=== PATIENT | female | born 1970 | race Caucasian/White ===

== ENCOUNTER 2016-12-11 13:06 | Emergency (ER) | payer OTHER ==
[2016-12-11 13:32] VITALS: BP 133/68; PULSE 76; RESP 18; TEMP 98.4; O2SAT 99
--- NOTE | 2016-12-11 14:14 | ED PDOC ---
HPI: Female Pain Time Seen by Provider: 12/11/16 13:45 Chief Complaint (Nursing): Female Genitourinary Chief Complaint (Provider): dysuria History Per: Patient History/Exam Limitations: no limitations Onset/Duration Of Symptoms: Days (x 1) Current Symptoms Are (Timing): Still Present Additional Complaint(s): Jyoti Tirado is a 46 year old female, with a previous medical history of anemia, who presents to the ED with complaints of pain on urination accompanied by bilateral lower back pain and lower abdominal pain ongoing since last night. Patient denies any fever, chills, nausea or vomiting. PMD: none provided Abnormal Vaginal Bleeding: No Past Medical History Reviewed: Historical Data, Nursing Documentation, Vital Signs Vital Signs: Last Vital Signs Temp 98.4 F 12/11/16 13:29 Pulse 76 12/11/16 13:29 Resp 18 12/11/16 13:29 BP 133/68 12/11/16 13:29 Pulse Ox 99 12/11/16 13:29 - Medical History PMH: Anemia - Surgical History Surgical History: No Surg Hx - Family History Family History: States: Unknown Family Hx - Living Arrangements Living Arrangements: With Family - Social History Current smoker - smoking cessation education provided: No Alcohol: None Drugs: Denies - Home Medications Home Medications: Ambulatory Orders Medication Instructions Recorded Ciprofloxacin [Cipro] 500 mg PO BID #10 tab 12/11/16 Phenazopyridine HCl [Pyridium] 200 mg PO TID #15 tablet 12/11/16 - Allergies Allergies/Adverse Reactions: Allergies Allergy/AdvReac Type Severity Reaction Status Date / Time No Known Allergies Allergy Verified 12/11/16 13:29 Review of Systems ROS Statement: Except As Marked, All Systems Reviewed And Found Negative Constitutional: Negative for: Fever, Chills Gastrointestinal: Negative for: Nausea, Vomiting Genitourinary Female: Positive for: Dysuria, Pelvic Pain Musculoskeletal: Positive for: Back Pain (bilateral lower back ) Physical Exam - Reviewed Nursing Documentation Reviewed: Yes Vital Signs Reviewed: Yes - Physical Exam Appears: Positive for: Well, Non-toxic, No Acute Distress Head Exam: Positive for: ATRAUMATIC, NORMAL INSPECTION, NORMOCEPHALIC Skin: Positive for: Normal Color Eye Exam: Positive for: Normal appearance ENT: Positive for: Normal ENT Inspection Neck: Positive for: Normal Cardiovascular/Chest: Positive for: Regular Rate, Rhythm Respiratory: Positive for: Normal Breath Sounds. Negative for: Accessory Muscle Use, Respiratory Distress Gastrointestinal/Abdominal: Positive for: Normal Exam, Bowel Sounds, Soft. Negative for: Tenderness Back: Positive for: Normal Inspection. Negative for: L CVA Tenderness, R CVA Tenderness, Vertebral Tenderness Neurologic/Psych: Positive for: Alert, Oriented - Laboratory Results Urine POC: Negative - ECG O2 Sat by Pulse Oximetry: 99 (RA) Pulse Ox Interpretation: Normal - Progress ED Course And Treament: Patient reports being unable to urinate and was given water in the ED to drink. Medical Decision Making Medical Decision Making: Initial Impression: Dysuria Initial Plan: * urine dipstick * urine * tylenol * reevaluation (+) nitrites in urine Scribe Attestation: Documented by Teresa King, acting as a scribe for Reshma Hodges PA-C. Provider Scribe Attestation: All medical record entries made by the Scribe were at my direction and personally dictated by me. I have reviewed the chart and agree that the record accurately reflects my personal performance of the history, physical exam, medical decision making, and the department course for this patient. I have also personally directed, reviewed, and agree with the discharge instructions and disposition. Disposition - Clinical Impression Clinical Impression: UTI (urinary tract infection) - Patient ED Disposition Is Patient to be Admitted: No Counseled Patient/Family Regarding: Diagnosis, Need For Followup, Rx Given - Disposition Referrals: [facility] [Outside] [facility] [Outside] Disposition: Routine/Home Disposition Time: 14:46 Condition: GOOD Prescriptions: Ciprofloxacin [Cipro] 500 mg PO BID #10 tab Phenazopyridine HCl [Pyridium] 200 mg PO TID #15 tablet Instructions: Urinary Tract Infection in Women (ED) Print Language: UKRAINIAN
== END 2016-12-11 15:08 | disposition home or self-care (01) ==
LOC: H.ER 13:06
DX: N39.0 Urinary tract infection, site not specified (principal)

== ENCOUNTER 2018-03-23 20:38 | Observation (INO) | payer SELFPAY ==
[2018-03-23] MEDS ORDERED: Sodium Chloride 0.9% 50 ML IV ONE (21:36)
[2018-03-23] MEDS ORDERED: Iodixanol 320 MG/ML 100 ML BOTTLE IV ONE (21:36)
[2018-03-23 22:02] LABS: PROTHROMBIN TIME 11.6 Seconds (9.8-13.1)
[2018-03-23 22:05] LABS: BASO # 0.1 K/uL (0.0-0.2); BASO % 0.6 % (0.0-2.0); EOS # 0.2 K/uL (0.0-0.7); EOS % 2.3 % (0.0-4.0); HEMOGLOBIN 14.1 g/dL (12.0-16.0); LYMPH # 2.1 K/uL (1.0-4.3); LYMPH % 24.9 % (20.0-40.0); MEAN CELL VOLUME 90.4 fl (81.0-99.0); MEAN CORPUSCULAR HEMOGLOBIN 30.7 pg (27.0-31.0); MEAN PLATELET VOLUME 8.8 fl (7.2-11.7); MONO # 0.5 K/uL (0.0-0.8); MONO % 6.3 % (0.0-10.0); NEUT # 5.6 K/uL (1.8-7.0); NEUT % 65.9 % (50.0-75.0); PARTIAL THROMBOPLASTIN TIME 32.4 Seconds (25.6-37.1); RBC 4.58 Mil/uL (3.80-5.20); RED CELL DISTRIBUTION WIDTH 12.6 % (11.5-14.5); WHITE BLOOD COUNT 8.5 K/uL (4.8-10.8)
[2018-03-23 22:10] LABS: BLOOD UREA NITROGEN 15 mg/dl (7-17); CALCIUM 9.3 mg/dL (8.4-10.2); GFR NON-AFRICAN AMERICAN > 60; LIPASE 112 U/L (23-300)
--- NOTE | 2018-03-23 22:10 | ED PDOC ---
HPI: Chest Pain Time Seen by Provider: 03/23/18 20:57 Chief Complaint (Nursing): Chest Pain Chief Complaint (Provider): Chest Pain History Per: Patient History/Exam Limitations: no limitations Onset/Duration Of Symptoms: Days (x2) Current Symptoms Are (Timing): Still Present Additional Complaint(s): 47 year old female with a history of anemia and possibly dm presents to the ED with chest pain onset x2 days. Patient describes constant sternal pain, radiating to her mid-back that worsens with movement or deep breath. She has had similar pain in the past that has resolved after taking Advil. This time, she took Advil with no relief. Patient denies shortness of breath, fever, cough , vomiting, abdominal pain, or any other medical complaints. She also reports an intermittent headache that started x3 months ago that she has been seen here for. PMD: Dr. Maldonado Past Medical History Reviewed: Historical Data, Nursing Documentation, Vital Signs Vital Signs: Last Vital Signs Temp 98 F 03/24/18 08:16 Pulse 59 L 03/24/18 08:16 Resp 18 03/24/18 08:16 BP 119/77 03/24/18 08:16 Pulse Ox 99 03/24/18 08:16 - Medical History PMH: Anemia, Diabetes (possible) - Surgical History Surgical History: - Family History Family History: States: Unknown Family Hx - Social History Current smoker - smoking cessation education provided: No Ex-Smoker (has not smoked in the last 12 months): No Alcohol: None Drugs: Denies - Home Medications Home Medications: Ambulatory Orders Medication Instructions Recorded Atorvastatin [Lipitor] 20 mg PO HS #30 tab 03/24/18 Famotidine [Pepcid] 20 mg PO DAILY 30 Days tab 03/24/18 Ibuprofen [Motrin Tab] 400 mg PO Q6 PRN #30 tab 03/24/18 - Allergies Allergies/Adverse Reactions: Allergies Allergy/AdvReac Type Severity Reaction Status Date / Time No Known Allergies Allergy Verified 03/24/18 00:31 JOSEF Risk Score for UA/NSTEMI - JOSEF Risk Score Age > 64: NO 3 or more CAD Risk Factors: NO Known CAD (Stenosis greater than 50%): NO Aspirin use in past 7 days: NO Severe Angina: YES EKG ST changes greater than 0.5mm: NO Positive Cardiac Marker: NO JOSEF Score: 1 Risk %: 5% Wells Criteria for PE - Wells Criteria for Pulmonary Embolism Clinical Signs and Symptoms of DVT: No P.E is #1 Diagnosis, or Equally Likely: No Heart Rate >100: No Immobilization at least 3 days;Surgery previous 4 weeks: No Previous, objectively diagnosed PE or DVT: No Hemoptysis: No Malignancy w/treatment within 6 months, or palliative: No Total Score: 0 Review of Systems ROS Statement: Except As Marked, All Systems Reviewed And Found Negative Cardiovascular: Positive for: Chest Pain Musculoskeletal: Positive for: Back Pain Neurological: Positive for: Headache Physical Exam - Reviewed Nursing Documentation Reviewed: Yes Vital Signs Reviewed: Yes - Physical Exam Appears: Positive for: Non-toxic, No Acute Distress Head Exam: Positive for: ATRAUMATIC, NORMOCEPHALIC Skin: Positive for: Normal Color, Warm, Dry Eye Exam: Positive for: Normal appearance, EOMI, PERRL ENT: Positive for: Normal ENT Inspection Neck: Positive for: Normal, Painless ROM, Supple Cardiovascular/Chest: Positive for: Regular Rate, Rhythm, Other (chest wall tenderness). Negative for: Murmur Respiratory: Positive for: Normal Breath Sounds. Negative for: Accessory Muscle Use, Respiratory Distress Gastrointestinal/Abdominal: Positive for: Normal Exam, Soft. Negative for: Tenderness Back: Negative for: L CVA Tenderness, R CVA Tenderness Extremity: Positive for: Normal ROM (upper and lower). Negative for: Pedal Edema, Deformity Neurologic/Psych: Positive for: Alert, Oriented (x3) - Laboratory Results Result Diagrams: 03/23/18 21:30 03/23/18 21:30 - ECG ECG Rhythm: Positive for: Normal QRS, Normal ST Segment, Sinus Rhythm Rate: 94 O2 Sat by Pulse Oximetry: 100 (RA) Pulse Ox Interpretation: Normal Medical Decision Making Medical Decision Making: Time: 2113 Initial Impression: Chest pain, back pain, and chronic headache Differential diagnoses include but are not limited to: acs, aortic dissection, possibly pulmonary embolism Initial Impression: --Angio chest CT --Dissection CT --Type and screen --BMP --Lipase --Troponin --CBC with differentials --Partial Thromboplastin time --Prothrombin time --Morphine 2 mg IVP EXAM: CT Chest With Intravenous Contrast EXAM DATE/TIME: 03/23/2018 9:15 PM CLINICAL HISTORY: 47 years old, female; Pain; Other: Back pain; Chest pain; Type not specified; Prior surgery; Surgery date: 6+ months; Surgery type: ; Additional info: Chest pain back pain. R/O p. E. TECHNIQUE: Axial computed tomography images of the chest with intravenous contrast. All CT scans at this facility use at least one of these dose optimization techniques: automated exposure control; mA and/or kV adjustment per patient size (includes targeted exams where dose is matched to clinical indication); or iterative reconstruction. Coronal and sagittal reformatted images were created and reviewed. MIP reconstructed images were created and reviewed. CONTRAST: 95 ml of [id number] administered intravenously. COMPARISON: No relevant prior studies available. FINDINGS: Lungs: Minimal bilateral dependent atelectasis. Pleural space: Normal. No pneumothorax. No pleural effusion. Heart: Normal. No cardiomegaly. No pericardial effusion. Mediastinum: Slight induration of anterior mediastinal fat which is nonspecific in a patient of this age. Pulmonary arteries: The main pulmonary artery measures 24 mm. No pulmonary embolism is identified. Aorta: The ascending thoracic aorta measures 25 mm. Motion and/or beam hardening artifact precludes detailed evaluation of the ascending thoracic aorta and subtle aortic dissection is not excluded on this basis although no gross or obvious dissection is seen. Not grossly ruled in does not mean ruled out. Lymph nodes: Unremarkable. No enlarged lymph nodes. Bones/joints: Unremarkable. No acute fracture. Soft tissues: Unremarkable. Liver: There is fatty infiltration of the liver. IMPRESSION: 1. Fatty infiltration of the liver. 2. Slight induration of anterior mediastinal fat which is nonspecific in a patient of this age. 3. Otherwise negative CT chest. No pulmonary embolism is identified. No gross or obvious aortic dissection is identified distal to the mid arch. Artifact and image degradation precludes detailed evaluation of the ascending thoracic aorta. EXAM: CT Abdomen and Pelvis With Intravenous Contrast EXAM DATE/TIME: 03/23/2018 9:15 PM CLINICAL HISTORY: 47 years old, female; Pain; Other: Back pain; Chest pain; Type not specified; Prior surgery; Surgery date: 6+ months; Surgery type: ; Additional info: Chest pain back pain. R/O p. E. TECHNIQUE: Axial computed tomography images of the abdomen and pelvis with intravenous contrast. All CT scans at this facility use at least one of these dose optimization techniques: automated exposure control; mA and/or kV adjustment per patient size (includes targeted exams where dose is matched to clinical indication); or iterative reconstruction. Coronal and sagittal reformatted images were created and reviewed. MIP reconstructed images were created and reviewed. CONTRAST: 95 ml of [id number] administered intravenously. COMPARISON: No relevant prior studies available. FINDINGS: Lower thorax: No acute findings. ABDOMEN: Liver: There is fatty infiltration of the liver. Gallbladder and bile ducts: Normal. No calcified stones. No ductal dilation. Pancreas: Normal. No ductal dilation. Spleen: Normal. No splenomegaly. Adrenals: Normal. No mass. Kidneys and ureters: Normal. No hydronephrosis. Stomach and bowel: Normal. No obstruction. No mucosal thickening. Appendix: A normal appendix is seen. PELVIS: Bladder: Unremarkable as visualized. Reproductive: Asymmetric enlargement of the right ovary compared to the left and may reflect a cyst 20 mm. ABDOMEN and PELVIS: Intraperitoneal space: Normal. No free air. No significant fluid collection. Bones/joints: No acute fracture. No dislocation. Soft tissues: Unremarkable. Vasculature: The aorta demonstrates no aneurysm or dissection. Lymph nodes: Normal. No enlarged lymph nodes. IMPRESSION: 1. Fatty infiltration of the liver. 2. The right ovary is asymmetrically larger than the left and may reflect the presence of a cyst which may measure approximately 20 mm. 3[address] Otherwise negative CT abdomen/pelvis. No abdominal aortic aneurysm or dissection is identified. Thank you for allowing us to participate in the care of your patient. Dictated and Authenticated by: Endy Valdovinos MD 03/23/2018 11:47 PM Eastern Time ([place] & [place]) Scribe Attestation: Documented by Madelin Enrique, acting as a scribe for Jaron Slater MD Provider Scribe Attestation: All medical record entries made by the Scribe were at my direction and personally dictated by me. I have reviewed the chart and agree that the record accurately reflects my personal performance of the history, physical exam, medical decision making, and the department course for this patient. I have also personally directed, reviewed, and agree with the discharge instructions and disposition. Time: 2355 -- Discussed case with Dr. Matthew who will be admitting patient under his service for observation with a diagnosis of chest pain. Scribe Attestation: Documented by Cristiana Payan acting as a scribe for aJron Slater MD. Provider Scribe Attestation: All medical record entries made by the Scribe were at my direction and personally dictated by me. I have reviewed the chart and agree that the record accurately reflects my personal performance of the history, physical exam, medical decision making, and the department course for this patient. I have also personally directed, reviewed, and agree with the discharge instructions and disposition. Disposition - Clinical Impression Clinical Impression: Chest pain - Patient ED Disposition Is Patient to be Admitted: Yes Discussed With DrRex: Reji Matthew Doctor Will See Patient In The: ED Counseled Patient/Family Regarding: Studies Performed, Diagnosis - Disposition Disposition Time: 23:56 Condition: FAIR - Pt Status Changed To: Hospital Disposition Of: Observation - POA Present On Arrival: None
--- NOTE | 2018-03-24 00:03 | CP.PCM.HP ---
History of Present Illness - History of Present Illness History of Present Illness: PMD: Rigo Maldonado MD Chief Complaint: Chest pain The Patient was seen and examined in the ED HPI: The hx was obtained from the patient and after review of the medical records. She is a 47 years old female with past medical hx of Anemia, comes with 2 days of continuous mid to lower sternal pain, radiating across the mid and lower back and increases in intensity with deep inspiration and agitation, associated with SOB pain related.The pain was not relieved with Motrin. She referred on and off chest pain for 3 months associated with joint pains. No fever, cough, nausea nor vomits. PMH: Anemia PSH: Cesefrian section X2; Excision of Ovarian cysts ; SH: Never Smoked; No illegal drug use; No Alcohol; Live with family; Works in a [employer] [place]; States: Unknown Family Hx Allergies: NKDA Medication: Reviewed Present on Admission - Present on Admission Any Indicators Present on Admission: No History of DVT/PE: No History of Uncontrolled Diabetes: No Urinary Catheter: No Decubitus Ulcer Present: No Review of Systems - Constitutional Constitutional: Headache. absent: Excessive Sweating, Fever - EENT Eyes: Requires Corrective Lenses. absent: Blurred Vision, Diplopia, Floaters Ears: absent: Decreased Hearing, Ear Discharge, Tinnitus Nose/Mouth/Throat: absent: Epistaxis, Nasal Congestion, Nasal Discharge, Sinus Pain, Sinus Pressure - Cardiovascular Cardiovascular: Chest Pain, Dyspnea. absent: Edema - Respiratory Respiratory: Dyspnea. absent: Cough, Wheezing, Stridor, Chest Congestion - Gastrointestinal Gastrointestinal: Abdominal Pain, Constipation. absent: Diarrhea, Nausea, Vomiting - Genitourinary Genitourinary: absent: Dysuria, Flank Pain, Urinary Frequency - Musculoskeletal Musculoskeletal: Arthralgias, Back Pain, Myalgias - Integumentary Integumentary: absent: Pruritus, Rash, Skin Ulcer, Sores, Striae, Swelling - Neurological Neurological: Headaches. absent: Confusion, Dizziness, Focal Weakness, Weakness - Psychiatric Psychiatric: absent: Anxiety, Depression, Panic Attacks - Endocrine Endocrine: absent: Palpitations, Polydipsia, Polyphagia, Polyuria - Hematologic/Lymphatic Hematologic: absent: Easy Bleeding, Easy Bruising Past Patient History - Past Medical History & Family History Past Medical History?: No - Past Social History Smoking Status: Never Smoked Chewing Tobacco Use: No Cigar Use: No Alcohol: None Drugs: Denies Home Situation {Lives}: With Family - CARDIAC Hx Cardiac Disorders: No - PULMONARY Hx Respiratory Disorders: No - NEUROLOGICAL Hx Neurological Disorder: No - HEENT Hx HEENT Problems: No - RENAL Hx Chronic Kidney Disease: No - ENDOCRINE/METABOLIC Hx Endocrine Disorders: No - HEMATOLOGICAL/ONCOLOGICAL Hx Anemia: Yes - INTEGUMENTARY Hx Dermatological Problems: No - MUSCULOSKELETAL/RHEUMATOLOGICAL Hx Musculoskeletal Disorders: No - GASTROINTESTINAL Hx Gastrointestinal Disorders: No - GENITOURINARY/GYNECOLOGICAL Hx Genitourinary Disorders: No - PSYCHIATRIC Hx Psychophysiologic Disorder: No Hx Substance Use: No - ANESTHESIA Hx Anesthesia: Yes Hx Anesthesia Reactions: No Meds Allergies/Adverse Reactions: Allergies Allergy/AdvReac Type Severity Reaction Status Date / Time No Known Allergies Allergy Verified 03/24/18 00:31 Physical Exam - Constitutional Appears: No Acute Distress - Head Exam Head Exam: ATRAUMATIC, NORMAL INSPECTION, NORMOCEPHALIC - Eye Exam Eye Exam: EOMI, Normal appearance Pupil Exam: NORMAL ACCOMODATION, PERRL - ENT Exam ENT Exam: Mucous Membranes Moist, Normal Exam, Normal External Ear Exam - Neck Exam Neck exam: Positive for: Full Rom, Normal Inspection. Negative for: Lymphadenopathy, Tenderness - Respiratory Exam Respiratory Exam: Clear to Auscultation Bilateral. absent: Rales, Rhonchi, Wheezes - Cardiovascular Exam Cardiovascular Exam: REGULAR RHYTHM, RRR, +S1, +S2. absent: Gallop, JVD - GI/Abdominal Exam GI & Abdominal Exam: Normal Bowel Sounds, Soft. absent: Mass, Organomegaly, Tenderness - Rectal Exam Rectal Exam: Deferred - Extremities Exam Extremities exam: Positive for: full ROM, normal inspection. Negative for: calf tenderness, pedal edema, tenderness - Back Exam Back exam: NORMAL INSPECTION. absent: CVA tenderness (L), CVA tenderness (R) - Neurological Exam Neurological exam: Alert, CN II-XII Intact, Oriented x3, Reflexes Normal - Psychiatric Exam Psychiatric exam: Normal Affect, Normal Mood - Skin Skin Exam: Dry, Intact, Normal Color, Warm Results - Vital Signs Recent Vital Signs: Last Vital Signs Temp 99.5 F 03/23/18 20:42 Pulse 94 H 03/24/18 00:02 Resp 18 03/23/18 20:42 BP 146/100 H 03/23/18 20:42 Pulse Ox 100 03/24/18 00:02 - Labs Result Diagrams: 03/23/18 21:30 03/23/18 21:30 Labs: Laboratory Results - last 24 hr 03/23/18 03/23/18 03/23/18 21:30 21:30 21:30 WBC 8.5 RBC 4.58 Hgb 14.1 Hct 41.4 MCV 90.4 MCH 30.7 MCHC 34.0 RDW 12.6 Plt Count 258 MPV 8.8 Neut % (Auto) 65.9 Lymph % (Auto) 24.9 Wilson % (Auto) 6.3 Eos % (Auto) 2.3 Baso % (Auto) 0.6 Neut # (Auto) 5.6 Lymph # (Auto) 2.1 Wilson # (Auto) 0.5 Eos # (Auto) 0.2 Baso # (Auto) 0.1 PT 11.6 INR 1.0 APTT 32.4 Sodium 140 Potassium 3.9 Chloride 106 Carbon Dioxide 25 Anion Gap 13 BUN 15 Creatinine 0.7 Est GFR ( Amer) > 60 Est GFR (Non-Af Amer) > 60 Random Glucose 155 H Calcium 9.3 Troponin I < 0.0120 Lipase 112 Blood Type Antibody Screen BBK History Checked 03/23/18 21:30 WBC RBC Hgb Hct MCV MCH MCHC RDW Plt Count MPV Neut % (Auto) Lymph % (Auto) Wilson % (Auto) Eos % (Auto) Baso % (Auto) Neut # (Auto) Lymph # (Auto) Wilson # (Auto) Eos # (Auto) Baso # (Auto) PT INR APTT Sodium Potassium Chloride Carbon Dioxide Anion Gap BUN Creatinine Est GFR ( Amer) Est GFR (Non-Af Amer) Random Glucose Calcium Troponin I Lipase Blood Type A POSITIVE Antibody Screen Negative BBK History Checked Patient has bt - Impressions Impression: NSR 94/min No sign of ischemia - Imaging and Cardiology CT Chest with Contrast Additional comment: EXAM: CT Chest With Intravenous Contrast EXAM DATE/TIME: 03/23/2018 9:15 PM FINDINGS: Lungs: Minimal bilateral dependent atelectasis. Pleural space: Normal. No pneumothorax. No pleural effusion. Heart: Normal. No cardiomegaly. No pericardial effusion. Mediastinum: Slight induration of anterior mediastinal fat which is nonspecific in a patient of this age. Pulmonary arteries: The main pulmonary artery measures 24 mm. No pulmonary embolism is identified. Aorta: The ascending thoracic aorta measures 25 mm. Motion and/or beam hardening artifact precludes detailed evaluation of the ascending thoracic aorta and subtle aortic dissection is not excluded on this basis although no gross or obvious dissection is seen. Not grossly ruled in does not mean ruled out. Lymph nodes: Unremarkable. No enlarged lymph nodes. Bones/joints: Unremarkable. No acute fracture. Soft tissues: Unremarkable. Liver: There is fatty infiltration of the liver. IMPRESSION: 1. Fatty infiltration of the liver. 2. Slight induration of anterior mediastinal fat which is nonspecific in a patient of this age. 3. Otherwise negative CT chest. No pulmonary embolism is identified. No gross or obvious aortic dissection is identified distal to the mid arch. Artifact and image degradation precludes detailed evaluation of the ascending thoracic aorta. Assessment & Plan - Assessment and Plan (Free Text) Assessment: #. Chest pain #. Arthralgia #. Hyperglycemia Plan: 47 years old female with past medical hx of Anemia, comes with 2 days of continuous mid to lower sternal pain, radiating across the mid and lower back and increases in intensity with deep inspiration and agitation, associated with SOB pain related.The pain was not relieved with Motrin. She referred on and off chest pain for 3 months associated with joint pains. No fever, cough, nausea nor vomits. #. Chest pain probably osteochondritis, r/o ACS - Consult Dr Gurrola Cardiology - pain management - Serial Troponin - Serial EKG - Aspirin - Lipid Panel #. Arthralgia, probably collagen vascular disease - Pain management - ESR - [facility] #. Non alcoholic fatty liver disease - Patient will need a weight loosing program #. Hyperglycemia - HbA1c #. Stress ulcer prophylaxis with Pepcid #. DVT prophylaxis with Lovenox #. Code Status: Full - Date & Time Date: 03/24/18 Time: 00:00
[2018-03-24 05:07] VITALS: RESP 18
[2018-03-24 06:12] LABS: HDL CHOLESTEROL 43 MG/DL (30-70)
[2018-03-24] MEDS ORDERED: Pneumococcal 23-Valent Vaccine IM ONE (06:18)
[2018-03-24 06:23] LABS: LDL CHOLESTEROL 131 mg/dL (0-129)
--- NOTE | 2018-03-24 08:12 | CP.PCM.CON ---
History of Present Illness - History of Present Illness History of Present Illness: 47 years old female with past medical hx of Anemia, comes with 2 days of continuous mid to lower sternal pain, Associated with lower back pain worse with movement of her torso and her arms. Pains have been present for 3 months Also associated with joint pains. EKG: normal Troponin: neg No meds claims she has borderline DM but no meds Past Patient History - Past Medical History & Family History Past Medical History?: No - Past Social History Smoking Status: Never Smoked Chewing Tobacco Use: No Cigar Use: No Alcohol: None Drugs: Denies Home Situation {Lives}: With Family - CARDIAC Hx Cardiac Disorders: No - PULMONARY Hx Respiratory Disorders: No - NEUROLOGICAL Hx Neurological Disorder: No - HEENT Hx HEENT Problems: No - RENAL Hx Chronic Kidney Disease: No - ENDOCRINE/METABOLIC Hx Endocrine Disorders: No - HEMATOLOGICAL/ONCOLOGICAL Hx Anemia: Yes - INTEGUMENTARY Hx Dermatological Problems: No - MUSCULOSKELETAL/RHEUMATOLOGICAL Hx Musculoskeletal Disorders: No - GASTROINTESTINAL Hx Gastrointestinal Disorders: No - GENITOURINARY/GYNECOLOGICAL Hx Genitourinary Disorders: No - PSYCHIATRIC Hx Psychophysiologic Disorder: No Hx Substance Use: No - SURGICAL HISTORY Hx Surgeries: Yes Hx Section: Yes - ANESTHESIA Hx Anesthesia: Yes Hx Anesthesia Reactions: No Meds Home Medications: Home Medication List Medication Instructions Recorded Confirmed Type RX: Atorvastatin [Lipitor] 20 mg PO HS #30 tab 03/24/18 Rx RX: Famotidine [Pepcid] 20 mg PO DAILY 30 Days tab 03/24/18 Rx RX: Ibuprofen [Motrin Tab] 400 mg PO Q6 PRN #30 tab 03/24/18 Rx Allergies/Adverse Reactions: Allergies Allergy/AdvReac Type Severity Reaction Status Date / Time No Known Allergies Allergy Verified 03/24/18 00:31 - Medications Medications: Current Medications Aspirin (Ecotrin) 81 mg PO DAILY JADEN Enoxaparin Sodium (Lovenox) 40 mg SC DAILY JADEN PRN Reason: Protocol Famotidine (Pepcid) 20 mg PO DAILY JADEN Ibuprofen (Motrin Tab) 400 mg PO Q6 PRN PRN Reason: Pain, moderate (4-7) Ibuprofen (Motrin Tab) 600 mg PO Q6 PRN PRN Reason: Pain, severe (8-10) Physical Exam - Constitutional Appears: Well - Head Exam Head Exam: NORMAL INSPECTION - Eye Exam Eye Exam: Normal appearance - ENT Exam ENT Exam: Normal Exam - Neck Exam Neck exam: Positive for: Normal Inspection - Respiratory Exam Respiratory Exam: NORMAL BREATHING PATTERN - Cardiovascular Exam Cardiovascular Exam: REGULAR RHYTHM Results - Vital Signs Recent Vital Signs: Last Vital Signs Temp 97.9 F 03/24/18 05:07 Pulse 60 03/24/18 05:07 Resp 18 03/24/18 05:07 BP 145/87 03/24/18 05:07 Pulse Ox 99 03/24/18 05:07 - Labs Result Diagrams: 03/23/18 21:30 03/23/18 21:30 Labs: Laboratory Results - last 24 hr 03/23/18 03/23/18 03/23/18 21:30 21:30 21:30 WBC 8.5 RBC 4.58 Hgb 14.1 Hct 41.4 MCV 90.4 MCH 30.7 MCHC 34.0 RDW 12.6 Plt Count 258 MPV 8.8 Neut % (Auto) 65.9 Lymph % (Auto) 24.9 [place] % (Auto) 6.3 Eos % (Auto) 2.3 Baso % (Auto) 0.6 Neut # (Auto) 5.6 Lymph # (Auto) 2.1 [place] # (Auto) 0.5 Eos # (Auto) 0.2 Baso # (Auto) 0.1 ESR PT 11.6 INR 1.0 APTT 32.4 Sodium 140 Potassium 3.9 Chloride 106 Carbon Dioxide 25 Anion Gap 13 BUN 15 Creatinine 0.7 Est GFR ( Amer) > 60 Est GFR (Non-Af Amer) > 60 POC Glucose (mg/dL) Random Glucose 155 H Calcium 9.3 Troponin I < 0.0120 Triglycerides Cholesterol LDL Cholesterol Direct HDL Cholesterol Lipase 112 Blood Type Antibody Screen BBK History Checked 03/23/18 03/24/18 03/24/18 21:30 04:20 04:20 WBC RBC Hgb Hct MCV MCH MCHC RDW Plt Count MPV Neut % (Auto) Lymph % (Auto) [place] % (Auto) Eos % (Auto) Baso % (Auto) Neut # (Auto) Lymph # (Auto) [place] # (Auto) Eos # (Auto) Baso # (Auto) ESR 26 H PT INR APTT Sodium Potassium Chloride Carbon Dioxide Anion Gap BUN Creatinine Est GFR ( Amer) Est GFR (Non-Af Amer) POC Glucose (mg/dL) Random Glucose Calcium Troponin I < 0.0120 Triglycerides 142 Cholesterol 201 H LDL Cholesterol Direct 131 H HDL Cholesterol 43 Lipase Blood Type A POSITIVE Antibody Screen Negative BBK History Checked Patient has bt 03/24/18 05:40 WBC RBC Hgb Hct MCV MCH MCHC RDW Plt Count MPV Neut % (Auto) Lymph % (Auto) [place] % (Auto) Eos % (Auto) Baso % (Auto) Neut # (Auto) Lymph # (Auto) [place] # (Auto) Eos # (Auto) Baso # (Auto) ESR PT INR APTT Sodium Potassium Chloride Carbon Dioxide Anion Gap BUN Creatinine Est GFR ( Amer) Est GFR (Non-Af Amer) POC Glucose (mg/dL) 134 H Random Glucose Calcium Troponin I Triglycerides Cholesterol LDL Cholesterol Direct HDL Cholesterol Lipase Blood Type Antibody Screen BBK History Checked Assessment & Plan (1) Non-cardiac chest pain Assessment and Plan: Pains appear to be non cardiac Status: Acute
[2018-03-24] MEDS ORDERED: Enoxaparin 40 mg Syringe SC SCH (09:00)
--- NOTE | 2018-03-24 09:31 | CARD ---
APPROVED REPORT Date of service: 03/23/2018 <Conclusion> Normal sinus rhythm Normal ECG
--- NOTE | 2018-03-24 10:30 | CT ---
PROCEDURE: CT Angiography Chest, Abdomen and Pelvis with and without intravenous contrast HISTORY: chest pain back pain COMPARISON: None. TECHNIQUE: Contiguous axial images of the chest, abdomen and pelvis were obtained in the phase of aortic enhancement. A noncontrast enhanced CT of the chest was also obtained to evaluate for possible intramural thrombus. Coronal and sagittal reformats were generated. IV dose administered: 95 mL Visipaque 320 Radiation dose: Total exam DLP = 1106.8 mGy-cm. This CT exam was performed using one or more of the following dose reduction techniques: Automated exposure control, adjustment of the mA and/or kV according to patient size, and/or use of iterative reconstruction technique. FINDINGS: CT ANGIOGRAPHY OF THE CHEST WITH & WITHOUT CONTRAST: AORTA (CHEST AND ABDOMEN): The thoracic and abdominal aorta are unremarkable, without aneurysm, dissection or rupture. No intramural thrombus identified in the thoracic aorta on the non-contrast ct of the chest. The celiac axis, superior mesenteric artery, inferior mesenteric artery and the renal arteries are widely patent. The pelvic arteries are unremarkable. LUNGS: Clear. No nodule, mass or consolidation. MEDIASTINUM: Unremarkable. Normal caliber aorta and pulmonary arterial trunk. No aortic dissection. Normal size heart. LYMPH NODES: Unremarkable. PLEURA: Unremarkable. No pneumothorax. No pleural fluid. BONES: Unremarkable. OTHER FINDINGS: None. CT ANGIOGRAPHY OF THE ABDOMEN AND PELVIS WITH CONTRAST: LIVER: Hepatic steatosis. No gross lesion or ductal dilatation. GALLBLADDER AND BILE DUCTS: Unremarkable. PANCREAS: Unremarkable. No gross lesion or ductal dilatation. SPLEEN: Unremarkable. ADRENALS: Unremarkable. No mass. KIDNEYS AND URETERS: Unremarkable. No hydronephrosis. No solid mass. VASCULATURE: Unremarkable. No aortic aneurysm. STOMACH AND BOWEL: Unremarkable. No obstruction. No gross mural thickening. APPENDIX: Normal appendix. PERITONEUM: Unremarkable. No free fluid. No free air. LYMPH NODES: Unremarkable. No enlarged lymph nodes. BLADDER: Unremarkable. REPRODUCTIVE: Right ovarian cyst measuring 3.8 x 2.1 cm. BONES: No acute fracture. OTHER FINDINGS: None. IMPRESSION: No evidence of acute aortic dissection. No central pulmonary embolism. Right ovarian cyst measuring up to 3.8 cm.
[2018-03-24 12:14] VITALS: BP 117/76; PULSE 65; TEMP 98.3; O2SAT 99
--- NOTE | 2018-03-24 14:15 | CP.PCM.DIS ---
Provider - Provider Date of Admission: 03/23/18 23:55 Attending physician: Reji Matthew Primary care physician: Service Consults: Dr. Izabela MD- cardiology Time Spent in preparation of Discharge (in minutes): 15 Hospital Course - Lab Results Lab Results: Most Recent Lab Values WBC 8.5 K/uL (4.8-10.8) 03/23/18 21:30 RBC 4.58 Mil/uL (3.80-5.20) 03/23/18 21:30 Hgb 14.1 g/dL (12.0-16.0) 03/23/18 21:30 Hct 41.4 % (34.0-47.0) 03/23/18 21: MCV 90.4 fl (81.0-99.0) 03/23/18 21: MCH 30.7 pg (27.0-31.0) 03/23/18: MCHC 34.0 g/dL (33.0-37.0) 03/23/18: RDW 12.6 % (11.5-14.5) 03/23/18 21: Plt Count 258 K/uL (130-400) 03/23/18 21:30 MPV 8.8 fl (7.2-11.7) 03/23/18 21:30 Neut % (Auto) 65.9 % (50.0-75.0) 03/23/18 21: Lymph % (Auto) 24.9 % (20.0-40.0) 03/23/18: [place] % (Auto) 6.3 % (0.0-10.0) 03/23/18 21: Eos % (Auto) 2.3 % (0.0-4.0) 03/23/18 21:30 Baso % (Auto) 0.6 % (0.0-2.0) 03/23/18 21: Neut # (Auto) 5.6 K/uL (1.8-7.0) 03/23/18 21: Lymph # (Auto) 2.1 K/uL (1.0-4.3) 03/23/18 21: [place] # (Auto) 0.5 K/uL (0.0-0.8) 03/23/18 21:30 Eos # (Auto) 0.2 K/uL (0.0-0.7) 03/23/18 21:30 Baso # (Auto) 0.1 K/uL (0.0-0.2) 03/23/18 21:30 ESR 26 mm/hr (0-20) H 03/24/18 04:20 PT 11.6 Seconds (9.8-13.1) 03/23/18 21:30 INR 1.0 03/23/18 21:30 APTT 32.4 Seconds (25.6-37.1) 03/23/18 21:30 Sodium 140 mmol/l (132-148) 03/23/18 21:30 Potassium 3.9 MMOL/L (3.6-5.0) 03/23/18 21:30 Chloride 106 mmol/L (98-107) 03/23/18 21:30 Carbon Dioxide 25 mmol/L (22-30) 03/23/18 21:30 Anion Gap 13 (10-20) 03/23/18 21:30 BUN 15 mg/dl (7-17) 03/23/18 21:30 Creatinine 0.7 mg/dl (0.7-1.2) 03/23/18 21:30 Est GFR ( Amer) > 60 03/23/18 21:30 Est GFR (Non-Af Amer) > 60 03/23/18 21:30 POC Glucose (mg/dL) 238 mg/dL (65-110) H 03/24/18 11:11 Random Glucose 155 mg/dL (65-105) H 03/23/18 21:30 Hemoglobin A1c 7.7 % (4.2-6.5) H 03/24/18 04:20 Calcium 9.3 mg/dL (8.4-10.2) 03/23/18 21:30 Troponin I < 0.0120 ng/mL (0.00-0.120) 03/24/18 10:30 Triglycerides 142 mg/DL (0-149) 03/24/18 04:20 Cholesterol 201 mg/dL (0-199) H 03/24/18 04:20 LDL Cholesterol Direct 131 mg/dL (0-129) H 03/24/18 04:20 HDL Cholesterol 43 MG/DL (30-70) 03/24/18 04:20 Lipase 112 U/L (23-300) 03/23/18 21:30 Blood Type A POSITIVE 03/23/18 21:30 Antibody Screen Negative 03/23/18 21:30 BBK History Checked Patient has bt 03/23/18 21:30 - Hospital Course Hospital Course: 47 years old female with past medical hx of Anemia, comes with 2 days of continuous mid to lower sternal pain, radiating across the mid and lower back and increases in intensity with deep inspiration and agitation, associated with SOB pain related.The pain was not relieved with Motrin. She referred on and off chest pain for 3 months associated with joint pains. No fever, cough, nausea nor vomits. The patient was subsequently ruled out for acute coronary syndrome. Dr. Gurrola saw the patient and wrote that the chest pain is likely noncardiac. She is being discharged home today in stable condition and should f/u with her primary MD. #. Chest pain probably osteochondritis, r/o ACS - Consult Dr Gurrola Cardiology - pain management - Serial Troponin negative - Serial EKG unremarkable - Aspirin - Lipid Panel whows cholesterol 201, LDL 131, will send home with Lipitor #. Arthralgia, probably collagen vascular disease - Pain management - ESR - RAYMON #. Non alcoholic fatty liver disease, obesity - statin - diet control #. Type 2 DM - new dx - HbA1c 7.7 - diet control, will also add Metformin 500 mg po BID - f/u with primary MD Discharge Exam - Head Exam Head Exam: ATRAUMATIC - Additional Findings Additional findings: Physical exam: Constitutional- cooperative, awake, alert Head- NCAT, PERRL Eye- PERRL, EOMI ENT- normal exam, MMM. Neck- normal inspection, supple, no JVD Respiratory- CTAB, no wheezes rales rhonchi Cardiovascular- RRR, +S1, +S2 no MRG GI/Abdominal- normal bowel sounds, soft, no mass, no hsm Skin- warm, dry Extremities Exam- normal capillary refill, normal inspection Neurological Exam- alert, awake, oriented Psych- normal mood, normal affect Discharge Plan - Discharge Medications Prescriptions: Atorvastatin [Lipitor] 20 mg PO HS #30 tab Famotidine [Pepcid] 20 mg PO DAILY 30 Days tab Ibuprofen [Motrin Tab] 400 mg PO Q6 PRN #30 tab PRN Reason: Pain, Moderate (4-7) metFORMIN [glucOPHAGE] 500 mg PO BID #60 tab - Follow Up Plan Condition: FAIR Disposition: HOME/ ROUTINE Instructions: Low Cholesterol, Saturated Fat, and Trans Fat Diet , Chest Pain That Is Not Caused by the Heart (DC), Chest Pain (DC), High Cholesterol (DC) Additional Instructions: dominic deborah ojnes 03/27/18 a las 3:40pm con el doctor kareem Referrals: [facility] [Outside] Santiago Tsang MD [Resident] -
== END 2018-03-24 14:18 | disposition home or self-care (01) ==
LOC: H.ER 20:38 → H.ERHOLD 23:55 → H.TEL 03-24 02:19
PROVIDERS: ADMIT Internal Medicine; ATTEND Internal Medicine
DX: R07.9 Chest pain, unspecified (principal); K76.0 Fatty (change of) liver, not elsewhere classified; M54.5 Low back pain; M25.50 Pain in unspecified joint; E66.9 Obesity, unspecified; Z68.36 Body mass index [BMI] 36.0-36.9, adult; E11.65 Type 2 diabetes mellitus with hyperglycemia; Z23 Encounter for immunization; R51 Headache
CPT/HCPCS: 36415; 71275; 74175; 80048; 80061; 81025; 82948; 83036; 83690; 84484; 85025; 85610; 85651; 85730; 86038; 86850; 86900; 90471; 90732; 93005; 96374; 99285; G0378; J1650; J2270; Q9967

== ENCOUNTER 2018-06-15 20:47 | Emergency (ER) | payer SELFPAY ==
[2018-06-15] MEDS ORDERED: Sodium Chloride 0.9% 1,000 ML IV STA ×2 (22:04→22:05)
--- NOTE | 2018-06-15 22:46 | ED PDOC ---
History of Present Illness History of Present Illness: 48 year old female with Lupus, ovarian cysts and rheumatoid arthritis presents to the ED with flu like symptoms for 3 days. Patient reports severe body aches, fever, chills, headache, back pain, sore throat, dry cough, lower abdominal pain, pelvic pain and pain with deep breath. She took Motrin with no relief. PMD: none provided HPI: Influenza Time Seen by Provider: 06/15/18 22:01 Chief Complaint: Flu-like Symptoms Chief Complaint (Provider): Flu-like Symptoms History Per: Patient Exam Limitations: no limitations Onset/Duration Of Symptoms: Days (x3) Symptoms include: fever, headache, bodyaches, sore throat, cough Past Medical History Reviewed: Historical Data, Nursing Documentation, Vital Signs Vital Signs: Last Vital Signs Temp 102.3 F H 06/15/18 22:30 Pulse 111 H 06/15/18 21:32 Resp 22 06/15/18 21:32 BP 157/71 H 06/15/18 21:32 Pulse Ox 99 06/15/18 21:32 - Medical History PMH: Anemia, Diabetes (possible) Denies: HIV, Chronic Kidney Disease Other PMH: Lupus, ovarian cysts and rheumatoid arthritis - Surgical History Surgical History: - Family History Family History: States: Unknown Family Hx - Social History Current smoker - smoking cessation education provided: No Ex-Smoker (has not smoked in the last 12 months): No Alcohol: None Drugs: Denies - Home Medications Home Medications: Ambulatory Orders Medication Instructions Recorded Atorvastatin [Lipitor] 20 mg PO HS #30 tab 03/24/18 Famotidine [Pepcid] 20 mg PO DAILY 30 Days tab 03/24/18 Ibuprofen [Motrin Tab] 400 mg PO Q6 PRN #30 tab 03/24/18 metFORMIN [glucOPHAGE] 500 mg PO BID #60 tab 03/24/18 Oseltamivir [Tamiflu] 75 mg PO BID #10 cap 06/16/18 - Allergies Allergies/Adverse Reactions: Allergies Allergy/AdvReac Type Severity Reaction Status Date / Time No Known Allergies Allergy Verified 06/15/18 21:30 Review of Systems Constitutional: Positive for: Fever, Chills ENT: Positive for: Throat Pain Respiratory: Positive for: Cough Gastrointestinal: Positive for: Abdominal Pain Genitourinary Female: Positive for: Pelvic Pain Musculoskeletal: Positive for: Back Pain, Other (body aches) Neurological: Positive for: Headache Physical Exam - Reviewed Nursing Documentation Reviewed: Yes Vital Signs Reviewed: Yes - Physical Exam Appears: Positive for: Uncomfortable (febrile) ENT: Positive for: Pharyngeal Erythema Cardiovascular/Chest: Positive for: Tachycardia, Other (regular rhythm) Gastrointestinal/Abdominal: Positive for: Tenderness (suprapubic tednerness) Medical Decision Making Medical Decision Making: Time: 2203 Initial Impression: Flu like symptom in setting of lupus and rheumatoid disease Initial Plan: --Pelvic US --CXR --labs 12:56 Transvaginal Ultrasound Findings: Real-time ultrasound images were obtained. Transvaginal ultrasound images were obtained. Uterus measures 10.4x4.5x8.5 cm. Fluid is noted in the superior aspect of the endometrial cavity measuring 0.9 cm in its thickness. Fluid is also noted in the inferior aspect of the endometrial cavity. The right ovary measures 2.5x1.2x1.4 cm. There is 1.2 cm cyst of the right ovary. The left ovary measures 5.4x2.9x3 cm. There is a 2.6x5.2 septated cysts of the left ovary without evidence of fat ovale and torsion. Peripheral flow is identified within the wall of this cyst. Impression: Multiple cystic like area/free fluid in the endometrial cavity of the uterus more prominent in its fundus/superior aspect. Right ovarian simple cyst. Left ovarian septated cyst with increased vascularity of its wall on color Doppler exam. Bilateral normal ovarian flow without evidence of ovarian torsion. 02:53 Labs reviewed showing no clinically significant abnormalities. Chest X-ray showed no active diseases. Patient reporting marked improvement in symptoms and is stable for discharge with diagnosis of flu like symptoms and ovarian cyst. Scribe Attestation: Documented by Madelin Enrique, acting as a scribe for Yimi Yeager MD Provider Scribe Attestation: All medical record entries made by the Scribe were at my direction and personally dictated by me. I have reviewed the chart and agree that the record accurately reflects my personal performance of the history, physical exam, medical decision making, and the department course for this patient. I have also personally directed, reviewed, and agree with the discharge instructions and disposition. - Laboratory Results Result Diagrams: 06/15/18 22:45 06/15/18 22:45 - ECG O2 Sat by Pulse Oximetry: 99 (RA) Pulse Ox Interpretation: Normal Disposition - Clinical Impression Clinical Impression: Influenza-like symptoms, Ovarian cyst - Patient ED Disposition Is Patient to be Admitted: No - Disposition Disposition: Routine/Home Disposition Time: 02:53 Condition: STABLE Prescriptions: Oseltamivir [Tamiflu] 75 mg PO BID #10 cap Instructions: Ovarian Cysts, Flu Forms: [facility] (Brazilian) Print Language: MONGOLIAN
[2018-06-15 23:00] LABS: SQUAMOUS EPITHIAL 3 /hpf (0-5); URINE BILIRUBIN NEGATIVE (NEGATIVE); URINE BLOOD NEGATIVE (NEGATIVE); URINE CLARITY CLEAR (Clear); URINE COLOR YELLOW (YELLOW); URINE GLUCOSE (UA) NEG (Normal); URINE LEUKOCYTE ESTERASE NEG Leu/uL (Negative); URINE PROTEIN NEGATIVE (NEGATIVE)
[2018-06-15 23:01] LABS: BASO # 0.1 K/uL (0.0-0.2); BASO % 0.5 % (0.0-2.0); EOS % 0.2 % (0.0-4.0); HEMOGLOBIN 13.2 g/dL (12.0-16.0); LYMPH # 0.8 K/uL (1.0-4.3); LYMPH % 7.1 % (20.0-40.0); MEAN CELL VOLUME 90.6 fl (81.0-99.0); MEAN CORPUSCULAR HGB CONC 33.1 g/dL (33.0-37.0); MEAN PLATELET VOLUME 8.5 fl (7.2-11.7); MONO # 0.6 K/uL (0.0-0.8); MONO % 5.5 % (0.0-10.0); NEUT # 10.1 K/uL (1.8-7.0); NEUT % 86.7 % (50.0-75.0); PLATELET COUNT 224 K/uL (130-400); RBC 4.42 Mil/uL (3.80-5.20); RED CELL DISTRIBUTION WIDTH 12.5 % (11.5-14.5); WHITE BLOOD COUNT 11.7 K/uL (4.8-10.8)
[2018-06-15 23:06] LABS: ALB/GLOB RATIO 1.3 (1.0-2.1); ALBUMIN 4.4 g/dL (3.5-5.0); ALT/SGPT 28 U/L (9-52); AST/SGOT 22 U/L (14-36); BLOOD UREA NITROGEN 10 mg/dl (7-17); CALCIUM 9.1 mg/dL (8.4-10.2); GFR NON-AFRICAN AMERICAN > 60
[2018-06-15 23:22] LABS: LYMPHOCYTE 6 % (20-50); MONOCYTE 5 % (0-10); NEUTROPHIL 89 % (42-75); PLATELET ESTIMATE NORMAL (NORMAL); TOTAL CELLS COUNTED 100
[2018-06-16 03:19] VITALS: BP 128/79; PULSE 88; RESP 18; TEMP 98.5
[2018-06-16 03:29] VITALS: O2SAT 99
--- NOTE | 2018-06-16 08:57 | CARD ---
APPROVED REPORT Date of service: 06/15/2018 EKG Measurement Heart [id number] <Conclusion> Sinus tachycardia Otherwise normal ECG
--- NOTE | 2018-06-16 10:30 | RAD ---
Date of service: 06/16/2018 HISTORY: Cough COMPARISON: 09/17/2013. TECHNIQUE: Chest PA and lateral FINDINGS: LINES AND TUBES: None. LUNG AND PLEURA: The lungs are well inflated and clear. No pleural effusion or pneumothorax. HEART AND MEDIASTINUM: The heart is not enlarged. No aortic atherosclerotic calcification present. The hilar and mediastinal contours are within normal limits. SKELETAL STRUCTURES: The bony structures are within normal limits for the patient's age. VISUALIZED UPPER ABDOMEN: Normal. OTHER FINDINGS: None. IMPRESSION: No active pulmonary disease.
--- NOTE | 2018-06-16 10:38 | US ---
Date of service: 06/15/2018 HISTORY: pelvic pain hx ov cysts COMPARISON: None available. TECHNIQUE: Transvaginal FINDINGS: UTERUS: Measures 10.4 x 4.5 x 8.5 cm. Normal in size and appearance. No fibroid or other mass lesion seen. ENDOMETRIUM: Measures 3 mm in single wall thickness. There is a small amount of fluid seen in the fundal aspect of the endometrial cavity. There is a small amount of fluid seen in the endometrial cavity in the lower uterine segment. Significance uncertain. CERVIX: No cervical abnormality identified. RIGHT OVARY: Measures 2.5 x 1.4 x 1.2 cm. No solid mass. Normal flow. LEFT OVARY: Measures 5.4 x 2.9 x 3.0 cm. No solid mass. Normal flow. Minimally complicated cyst with a single thin internal septation demonstrating no vascularity on color Doppler interrogation.. The cyst measures 2.6 x 5.2 x 2.4 cm. A follow-up transvaginal pelvic ultrasound examination is advised in 6-12 weeks due to the size of this cyst. FREE FLUID: No significant free fluid noted. OTHER FINDINGS: None. IMPRESSION: 5.2 cm septated left ovarian cyst. Follow-up transvaginal pelvic ultrasound examination is advised in 6-12 weeks. Small amount of endometrial fluid noted common nonspecific. No additional abnormality. The preliminary findings for this examination were reported by [facility] at 12:56 a.m. on 06/16/2018. There is concurrence of this report with the preliminary findings.
== END 2018-06-16 03:15 | disposition home or self-care (01) ==
LOC: H.ER 20:47
DX: J11.1 Influenza due to unidentified influenza virus with other respiratory manifestations (principal); N83.201 Unspecified ovarian cyst, right side; N83.202 Unspecified ovarian cyst, left side; M32.9 Systemic lupus erythematosus, unspecified; Z79.84 Long term (current) use of oral hypoglycemic drugs; Z87.891 Personal history of nicotine dependence; M06.9 Rheumatoid arthritis, unspecified
CPT/HCPCS: 71046; 76830; 80053; 81003; 81025; 82550; 83605; 85025; 87040; 87070; 87430; 87804; 93005; 96361; 96374; 96375; 99284; J1885; J2930; J7030